=== PATIENT | female | born 1985 | race Caucasian/White ===

== ENCOUNTER 2016-11-16 12:51 | Emergency (ER) | payer OTHER ==
[~2016-11-16] VITALS: Ht 160 cm; Wt 81.3 kg
[~2016-11-16 12:51] MED LIST: ALBU18HF INHALATION; ALBU8.5H5 IH; PRED20TA PO; PRENAT PO
[2016-11-16 12:55] VITALS: Ht 160 cm; Wt 81.3 kg
[2016-11-16] MEDS ORDERED: PRED20TA PO (14:47)
[2016-11-16] MEDS ORDERED: ALBU2.5V3 NEB (14:48)
--- NOTE | 2016-11-16 17:21 | ERD ---
ER Documentation Chief Complaint Date/Time DATE: 11/16/16 TIME: 17:18 Chief Complaint HAS ASTHMA, WORSEN X 2 DAYS HPI This patient is a 31-year-old female with history of asthma presenting to the emergency department for asthma exacerbation with wheezing ongoing for the past 48 hours. The patient states her symptoms are secondary to a recent flulike illness. The patient also has cough. The patient has been using her albuterol inhaler multiple times per day and has continued to have wheezing. The patient denies fevers, chills, urinary symptoms, or other symptoms at this time. ROS All systems reviewed and are negative except as per history of present illness. Medications Home Meds Active Scripts Albuterol Sulfate* (Albuterol Sulfate* Neb) 0.083%-3 Ml Neb, 2.5 MG NEB Q4 Y for SHORTNESS OF BREATH, #30 EA Prov:RADHA COTTO PA-C 11/16/16 Prednisone* (Prednisone*) 20 Mg Tab, 40 MG PO DAILY for 5 Days, #10 TAB Prov:RADHA COTTO PA-C 11/16/16 Prednisone* (Prednisone*) 20 Mg Tab, 40 MG PO DAILY for 4 Days, #8 TAB 0 Refills Prov:HUNTER CABA PA-C 01/17/16 Albuterol Sulfate* (Ventolin HFA*) 18 Gm Hfa.aer.ad, 2 PUFF INHALATION Q6H for WHEEZING for 30 Days, #1 INHALER 0 Refills Prov:HUNTER CABA PA-C 01/17/16 Reported Medications Albuterol Sulfate* (Albuterol Sulfate* HFA) 8.5 Gm Hfa.aer.ad, 2 PUFF IH Q6, EA 05/21/15 Multivit/Min/Fol Ac/Iron/Pren* ( S*) 1 Tab Tab, 1 TAB PO DAILY, TAB 05/21/15 Allergies Allergies: Coded Allergies: No Known Allergy (Verified , 11/16/16) PMhx/Soc History of Surgery: No Anesthesia Reaction: No Hx Neurological Disorder: No Hx Respiratory Disorders: Yes (asthma) Hx Cardiac Disorders: No Hx Psychiatric Problems: No Hx Miscellaneous Medical Probl: No Hx Alcohol Use: No Hx Substance Use: No Hx Tobacco Use: No FmHx Noncontributory for chief complaint Physical Exam Vitals Vital Signs Date Time Temp Pulse Resp B/P Pulse Ox O2 Delivery O2 Flow Rate FiO2 11/16/16 12:55 98.1 88 18 121/67 99 Physical Exam Const: The patient is resting comfortably in no acute distress. Head: Atraumatic Eyes: Normal Conjunctiva ENT: Normal External Ears, Nose and Mouth. Neck: Full range of motion..~ No meningismus. Resp: Clear to auscultation bilaterally. There are no signs of respiratory distress. There is no wheezing or crackles auscultated. Cardio: Regular rate and rhythm, no murmurs Abd: Soft, non tender, non distended. Normal bowel sounds Skin: No petechiae or rashes Back: No midline or flank tenderness Ext: No cyanosis, or edema Neur: Awake and alert Psych: Normal Mood and Affect Procedures/MDM 31-year-old female presents secondary to complaints of asthma exacerbation with wheezing. On physical examination the patient's vitals are within normal limits. Pulse ox is 99% on room air. There is no wheezing auscultated to bilateral lung ortiz. The patient states she has been using her albuterol inhaler every 2 hours without relief of her symptoms. I believe the patient is suitable for outpatient management with a short course of prednisone as well as an albuterol medication nebulizer. The patient agrees with the discharge plan and diagnosis. All questions and concerns were addressed. Patient was given strict ER return precautions. I have low suspicion for status asthmaticus, pneumothorax, pulmonary embolism, septicemia, or other emergent conditions. Departure Diagnosis: Primary Impression: Asthma with acute exacerbation Condition: Fair Patient Instructions: Asthma Medications, Asthma, Acute (Adult) Referrals: MARIAH SANCHEZ MD (PCP) [facility] YOU HAVE RECEIVED A MEDICAL SCREENING EXAM AND THE RESULTS INDICATE THAT YOU DO NOT HAVE A CONDITION THAT REQUIRES URGENT TREATMENT IN THE EMERGENCY DEPARTMENT. FURTHER EVALUATION AND TREATMENT OF YOUR CONDITION CAN WAIT UNTIL YOU ARE SEEN IN YOUR DOCTORS OFFICE WITHIN THE NEXT 1-2 DAYS. IT IS YOUR RESPONSIBILITY TO MAKE AN APPOINTMENT FOR FOLOW-UP CARE. IF YOU HAVE A PRIMARY DOCTOR --you should call your primary doctor and schedule an appointment IF YOU DO NOT HAVE A PRIMARY DOCTOR YOU CAN CALL OUR PHYSICIAN REFERRAL HOTLINE AT IF YOU CAN NOT AFFORD TO SEE A PHYSICIAN YOU CAN CHOSE FROM THE FOLLOWING [facility] [address] [facility] [address] [facility] [facility] [address] [facility] [address] [facility] [address] [facility]. [facility] [address] Additional Instructions: Follow-up with your primary care physician within 1 week. Return to the emergency department immediately should you have any new or worsening symptoms, uncontrolled fevers, or other unexplained symptoms. Take all medications as directed. RADHA COTTO PA-C Nov 16, 2016 17:21
== END 2016-11-16 15:05 | disposition home or self-care (01) ==
LOC: FTE 12:51
DX: J45.901 Unspecified asthma with (acute) exacerbation (principal)
CPT/HCPCS: 99284

== ENCOUNTER 2017-01-22 11:10 | Emergency (ER) | payer OTHER ==
[~2017-01-22] VITALS: Ht 165.1 cm; Wt 82.5 kg
[~2017-01-22 11:10] MED LIST changes: +ALBU2.5V3 NEB
[2017-01-22 11:21] VITALS: Ht 165.1 cm; Wt 82.5 kg
[2017-01-22] MEDS ORDERED: AZIT250T94 PO (12:19)
[2017-01-22] MEDS ORDERED: CETI10CA PO (12:20)
[2017-01-22] MEDS ORDERED: BENZ100C70 PO (12:21)
--- NOTE | 2017-01-22 12:30 | ERD ---
ER Documentation Chief Complaint Date/Time DATE: 01/22/17 TIME: 12:24 Chief Complaint Complains of SOB HX of asthma HPI This a 31-year-old female who presents to the emergency department today for cough for the past week. States the cough is worse at night. States she has a history of asthma. States that she had pneumonia several years ago. States she has been taking DayQuil and NyQuil with no improvement in symptoms. States she is starting to get some body aches. Denies any fevers or chills. States she has also had some left arm numbness at night. Denies any cigarette smoking , oral contraceptive use or recent prolonged travel. Denies any leg pain. ROS All systems reviewed and are negative except as per history of present illness. Medications Home Meds Active Scripts Benzonatate* (Tessalon Perle*) 100 Mg Capsule, 100 MG PO Q8H Y for COUGH, #30 CAP Prov:KAMRON CASTRO PA-C 01/22/17 Cetirizine Hcl* (Zyrtec*) 10 Mg Capsule, 10 MG PO DAILY, #14 TAB.CHEW Prov:KAMRON CASTRO PA-C 01/22/17 Azithromycin* (Zithromax*) 250 Mg Tablet, 250 MG PO .ZPACK DIRECTED, #6 TAB TAKE 500 MG (2 TABS) THE FIRST DAY THEN 250 MG (1 TAB) DAYS 2-5 Prov:KAMRON CASTRO PA-C 01/22/17 Albuterol Sulfate* (Albuterol Sulfate* Neb) 0.083%-3 Ml Neb, 2.5 MG NEB Q4 Y for SHORTNESS OF BREATH, #30 EA Prov:RADHA COTTO PA-C 11/16/16 Prednisone* (Prednisone*) 20 Mg Tab, 40 MG PO DAILY for 5 Days, #10 TAB Prov:RADHA COTTO PA-C 11/16/16 Prednisone* (Prednisone*) 20 Mg Tab, 40 MG PO DAILY for 4 Days, #8 TAB 0 Refills Prov:HUNTER CABA PA-C 01/17/16 Albuterol Sulfate* (Ventolin HFA*) 18 Gm Hfa.aer.ad, 2 PUFF INHALATION Q6H for WHEEZING for 30 Days, #1 INHALER 0 Refills Prov:HUNTER CABA PA-C 01/17/16 Reported Medications Albuterol Sulfate* (Albuterol Sulfate* HFA) 8.5 Gm Hfa.aer.ad, 2 PUFF IH Q6, EA 05/21/15 Multivit/Min/Fol Ac/Iron/Pren* ( S*) 1 Tab Tab, 1 TAB PO DAILY, TAB 05/21/15 Allergies Allergies: Coded Allergies: No Known Allergy (Verified , 11/16/16) PMhx/Soc History of Surgery: No Anesthesia Reaction: No Hx Neurological Disorder: No Hx Respiratory Disorders: Yes (asthma) Hx Cardiac Disorders: No Hx Psychiatric Problems: No Hx Miscellaneous Medical Probl: No Hx Alcohol Use: No Hx Substance Use: No Hx Tobacco Use: No Physical Exam Vitals Vital Signs Date Time Temp Pulse Resp B/P Pulse Ox O2 Delivery O2 Flow Rate FiO2 01/22/17 11:21 98.7 91 20 126/72 96 Physical Exam Const: No acute distress Head: Atraumatic Eyes: Normal Conjunctiva ENT: Ears TMs normal. Nose no drainage. Throat no erythema no exudate Neck: Full range of motion..~ No meningismus. Resp: Clear to auscultation bilaterally. No wheezing. Cardio: Regular rate and rhythm, no murmurs Abd: Soft, non tender, non distended. Normal bowel sounds Skin: No petechiae or rashes Back: No midline or flank tenderness Ext: No cyanosis, or edema Neur: Awake and alert Psych: Normal Mood and Affect Procedures/MDM This 31-year-old female presents the emergency department today complaining of cough for the past week. She had indicated that her cough is worse at night. She had indicated that she also has a history of asthma for which she uses albuterol. Patient has no wheezing on physical exam her physical exam is otherwise benign. I do not feel that she requires a breathing treatment. Patient is afebrile and otherwise well-appearing. Her oxygen saturations 96%. She is not tachycardic. She does have some nasal congestion and speaking to the patient. I did offer to obtain a chest x-ray for the patient however she has declined at this time. I will give the patient a prescription for azithromycin that would cover her for bronchitis, pneumonia. Low suspicion for PE, abscess, pleural effusion, pneumothorax Patient has no risk factors for PE. She has full active range of motion in her left arm. She had good pulses. She is PERC negative. Patient was also given a prescription for Tessalon Perles and Zyrtec as I did also consider allergic rhinitis given patient's complaints of cough is worse at night and her nasal congestion. At this time the patient is stable for discharge and outpatient management. Patient should follow up with their PCP in the next 1-2 days. They may return to the emergency department sooner for any persistent or worsening of symptoms. Patient understood and agreed with the plan. Departure Diagnosis: Primary Impression: Cough Condition: Fair Patient Instructions: Cough, Chronic, Uncertain Cause, (Adult) Additional Instructions: Call your primary care doctor TOMORROW for an appointment during the next 1-2 days.See the doctor sooner or return here if your condition worsens before your appointment time. Take antibiotics as prescribed Take Zyrtec as prescribed Take Tessalon Perles as needed for cough KAMRON CASTRO PA-C Jan 22, 2017 12:30
== END 2017-01-22 13:05 | disposition home or self-care (01) ==
LOC: FTE 11:10
DX: R05 Cough (principal); J45.909 Unspecified asthma, uncomplicated
CPT/HCPCS: 99284

== ENCOUNTER → 2018-06-15 | Emergency (ER) | END | disposition home or self-care (01) ==